=== PATIENT | female | born 1980 | race African-American/Black ===

== ENCOUNTER 2021-09-23 12:32 | Emergency (ER) | payer OTHER ==
[~2021-09-23] VITALS: Ht 165.1 cm; Wt 54.0 kg
[2021-09-23 14:36] LABS: CLARITY URINE CLEAR (CLEAR); COLOR URINE YELLOW (YELLOW); KETONES URINE NEGATIVE (NEGATIVE); LEUKOCYTE ESTERASE URINE NEGATIVE (NEGATIVE); NITRITE URINE NEGATIVE (NEGATIVE); OCCULT BLOOD URINE TRACE (NEGATIVE); PROTEIN URINE NEGATIVE (NEGATIVE); SPECIFIC GRAVITY URINE 1.016 (1.005-1.030)
[2021-09-23] MEDS ORDERED: HYDROCODONE/ACETAMINOPHEN 5/325MG TABLET PO ONE (16:15)
[2021-09-23 16:36] VITALS: BP 115/54
== END 2021-09-23 18:43 | disposition home or self-care (01) ==
LOC: ER 12:32
DX: K40.90 Unilateral inguinal hernia, without obstruction or gangrene, not specified as recurrent (principal); I31.3 Pericardial effusion (noninflammatory)
CPT/HCPCS: 74176; 81003; 81025; 99284

== ENCOUNTER 2023-03-20 09:54 | Emergency (ER) | payer OTHER ==
[~2023-03-20] VITALS: Ht 152.4 cm; Wt 75.0 kg
[2023-03-20 10:38] LABS: HEMATOCRIT. 33.9 % (36.0-48.0); MEAN CORPUSCULAR HEMOGLOBIN 24.6 pg (28.0-32.0); MEAN CORPUSCULAR VOLUME 75.5 fL (81.0-99.0); MEAN PLATELET VOLUME 7.3 fl (7.4-10.4); PLATELET 266 x1000/uL (130-400); RED BLOOD CELL COUNT 4.48 mill/uL (4.2-5.4); RED CELL DISTRIBUTION WIDTH 19.1 % (11.6-14.6)
[2023-03-20 10:48] LABS: CHLORIDE 106 mEq/L (98-107)
[2023-03-20 11:18] LABS: CLARITY URINE CLOUDY (CLEAR); COLOR URINE YELLOW (YELLOW); KETONES URINE NEGATIVE (NEGATIVE); LEUKOCYTE ESTERASE URINE 2+ (NEGATIVE); NITRITE URINE NEGATIVE (NEGATIVE); OCCULT BLOOD URINE NEGATIVE (NEGATIVE); PH URINE 7.5 (4.5-8.0); PROTEIN URINE NEGATIVE (NEGATIVE); SPECIFIC GRAVITY URINE 1.015 (1.005-1.030)
[2023-03-20 11:19] LABS: PLATELET ESTIMATE NORMAL
[2023-03-20 11:33] LABS: HCG SCREEN POSITIVE
[2023-03-20 14:00] VITALS: BP 130/70
[2023-03-20] MEDS ORDERED: CEPH250T MT (14:35)
== END 2023-03-20 15:09 | disposition home or self-care (01) ==
LOC: ER 10:29
DX: N39.0 Urinary tract infection, site not specified (principal); F12.10 Cannabis abuse, uncomplicated
CPT/HCPCS: 36415; 76801; 80053; 81003; 81025; 84702; 84703; 85025; 99284

== ENCOUNTER 2023-03-22 16:38 | Emergency (ER) | payer OTHER ==
[~2023-03-22] VITALS: Ht 154.9 cm; Wt 55.0 kg
[~2023-03-22 16:38] MED LIST: CEPH250T MT
[2023-03-22 16:44] VITALS: BP 109/72
== END 2023-03-22 18:48 | disposition home or self-care (01) ==
LOC: ER 16:38
DX: Z13.9 Encounter for screening, unspecified (principal); Z98.890 Other specified postprocedural states
CPT/HCPCS: 36415; 84702; 99283

== ENCOUNTER 2023-04-04 16:53 | Emergency (ER) | payer OTHER ==
[~2023-04-04] VITALS: Ht 154.9 cm; Wt 56.0 kg
[2023-04-04 17:09] VITALS: BP 130/76
[2023-04-04 17:36] LABS: HEMATOCRIT. 30.7 % (36.0-48.0); HEMOGLOBIN. 10.4 g/dL (12.0-16.0); MEAN CORPUSCULAR HEMOGLOBIN 26.4 pg (28.0-32.0); MEAN CORPUSCULAR VOLUME 78.3 fL (81.0-99.0); MEAN PLATELET VOLUME 7.3 fl (7.4-10.4); PLATELET 241 x1000/uL (130-400); RED BLOOD CELL COUNT 3.92 mill/uL (4.2-5.4)
[2023-04-04 17:43] LABS: CHLORIDE 107 mEq/L (98-107)
[2023-04-04 17:53] LABS: B-HCG QUANTITATIVE 336 mIU/mL (<3)
[2023-04-04 18:09] LABS: PLATELET ESTIMATE NORMAL
== END 2023-04-04 21:14 | disposition left against medical advice (07) ==
LOC: ER 16:53
DX: O03.9 Complete or unspecified spontaneous abortion without complication (principal); Z3A.01 Less than 8 weeks gestation of pregnancy; D64.9 Anemia, unspecified; Z98.890 Other specified postprocedural states
CPT/HCPCS: 36415; 76801; 76817; 80053; 84702; 85025; 86850; 86900; 86901; 99284; Z7610

== ENCOUNTER 2023-11-02 15:58 | Emergency (ER) | payer OTHER ==
[~2023-11-02] VITALS: Ht 154.9 cm; Wt 52.0 kg
[2023-11-02 16:04] VITALS: BP 123/86; PULSE 88; TEMP 98.7; O2SAT 100
[2023-11-02] MEDS ORDERED: SODIUM CHLORIDE 0.9% 1,000 ML IV ONE (16:15)
[2023-11-02 16:45] LABS: HEMATOCRIT. 30.7 % (36.0-48.0); HEMOGLOBIN. 9.3 g/dL (12.0-16.0); MEAN CORPUSCULAR HEMOGLOBIN 22.2 pg (28.0-32.0); MEAN CORPUSCULAR HGB CONC 30.3 g/dL (31.0-37.0); MEAN CORPUSCULAR VOLUME 73.1 fL (81.0-99.0); MEAN PLATELET VOLUME 7.9 fl (7.4-10.4); PLATELET 303 x1000/uL (130-400); RED CELL DISTRIBUTION WIDTH 17.6 % (11.6-14.6); WHITE BLOOD COUNT 4.2 x1000/uL (4.5-11.0)
[2023-11-02 16:47] LABS: DIFFERENTIAL COMMENT 1
[2023-11-02 17:04] LABS: ALANINE AMINOTRANSFERASE 14 IU/L (10-49); ALBUMIN 3.9 g/dL (3.2-4.8); ASPARTATE AMINOTRANSFERASE 21 IU/L (<34); BILIRUBIN TOTAL 0.3 mg/dL (0.1-1.0); CALCIUM 9.1 mg/dL (8.7-10.4); CARBON DIOXIDE 26 mEq/L (21-32); CHLORIDE 109 mEq/L (98-107); CREATINE KINASE 125 IU/L (34-145); CREATININE 0.6 mg/dL (0.6-1.0); GLUCOSE 90 mg/dL (70-105); POTASSIUM 3.9 mEq/L (3.5-5.1); PROTEIN TOTAL 6.4 g/dL (6.0-8.3); SODIUM 143 mEq/L (136-145); UREA NITROGEN BLOOD 8 mg/dL (9-23)
[2023-11-02 17:06] LABS: TROPONIN I HIGH SENSITIVITY < 4 ng/L (3.0-34)
[2023-11-02 17:13] LABS: ANISOCYTOSIS 1+; HYPOCHROMASIA 1+; MICROCYTOSIS 2+; PLATELET ESTIMATE NORMAL
[2023-11-02] MEDS ORDERED: ONDANSETRON HCL 4MG TABLET PO ONE (18:30)
[2023-11-02] MEDS ORDERED: ACETAMINOPHEN 325MG TABLET PO ONE (18:30)
[2023-11-02] MEDS ORDERED: IBUP-2028 PO (18:44)
[2023-11-02] MEDS ORDERED: META-24 PO (18:44)
== END 2023-11-02 19:30 | disposition home or self-care (01) ==
LOC: ER 15:58
DX: M62.830 Muscle spasm of back (principal); D64.9 Anemia, unspecified; Z98.890 Other specified postprocedural states
CPT/HCPCS: 80053; 82550; 83690; 85025; 84484; 36415; 71045; 99284; J7030; Z7610 ×3; C1893

== ENCOUNTER 2024-10-04 15:58 | Emergency (ER) | payer MEDICAID ==
[~2024-10-04] VITALS: Ht 154.9 cm; Wt 56.0 kg
[~2024-10-04 15:58] MED LIST changes: +IBUP-2028 PO; +META-116 PO
[2024-10-04 16:03] VITALS: BP 123/75; PULSE 94; TEMP 98.3; O2SAT 100
[2024-10-04] MEDS: CYCLOBENZAPRINE 10MG TABLET PO STA (17:11)
[2024-10-04] MEDS: NITROFURANTOIN 100MG M/M CAPSULE PO ONE (17:11)
[2024-10-04 17:26] LABS: CLARITY URINE CLOUDY (CLEAR); COLOR URINE YELLOW (YELLOW); GLUCOSE URINE NEGATIVE (NEGATIVE); KETONES URINE NEGATIVE (NEGATIVE); LEUKOCYTE ESTERASE URINE 3+ (NEGATIVE); NITRITE URINE NEGATIVE (NEGATIVE); OCCULT BLOOD URINE NEGATIVE (NEGATIVE); PH URINE 6.5 (4.5-8.0); PROTEIN URINE NEGATIVE (NEGATIVE); SPECIFIC GRAVITY URINE 1.014 (1.005-1.030)
[2024-10-04 17:47] LABS: RBC URINE NONE SEEN /hpf (0-2); SQUAMOUS EPITHELIAL CELL URINE 1+ /lpf (RARE/1+); TRICHOMONAS URINE FEW
[2024-10-04 17:48] LABS: BACTERIA URINE TRACE
[2024-10-04] MEDS ORDERED: CYCL10TA21 MT (17:49)
[2024-10-04] MEDS ORDERED: NITR-87 MT (17:49)
[2024-10-04 18:00] VITALS: RESP 18
== END 2024-10-04 18:18 | disposition home or self-care (01) ==
LOC: ER 15:58
DX: N39.0 Urinary tract infection, site not specified (principal); F41.9 Anxiety disorder, unspecified; D64.9 Anemia, unspecified; Z79.1 Long term (current) use of non-steroidal anti-inflammatories (NSAID); Z87.440 Personal history of urinary (tract) infections; Z79.899 Other long term (current) drug therapy
CPT/HCPCS: 81003; 99283